=== PATIENT | female | born 1945 | race Caucasian/White ===

== ENCOUNTER 2018-07-25 21:09 | Emergency (ER) | payer MEDICARE, OTHER ==
[~2018-07-25] VITALS: Ht 157.5 cm; Wt 71.8 kg
[2018-07-25 21:20] VITALS: Ht 157.5 cm; Wt 71.8 kg
[2018-07-26] MEDS ORDERED: ACETAMINOPHEN 325 MG TAB PO ONE
[2018-07-26] MEDS ORDERED: traMADol 50 MG TAB PO ONE (00:30)
[2018-07-26] MEDS ORDERED: TRAM50TA2 PO (01:01)
--- NOTE | 2018-07-26 01:06 | ERD ---
ER Documentation Chief Complaint Chief Complaint S/P [facility]; LEFT WRIST DEFORMITY HPI 73-year-old female tripped over a curb today. She has pain in her bilateral wrist. She did block her fall with her upper extremities and denies any head injury, neck pain, loss of consciousness, vomiting, visual changes. Her primary complaints are her bilateral wrist pain. ROS All systems reviewed and are negative except as per history of present illness. Medications Home Meds Active Scripts Tramadol HCl (Tramadol HCl) 50 Mg Tablet, 50 MG PO Q4 PRN for PAIN, #15 TAB Prov:GEOVANI CHAMBERLAIN MD 07/26/18 Allergies Allergies: Coded Allergies: No Known Allergy (Unverified , 07/25/18) PMhx/Soc Medical and Surgical Hx: pt denies Medical Hx, pt denies Surgical Hx Hx Alcohol Use: No Hx Substance Use: No Hx Tobacco Use: No Smoking Status: Never smoker FmHx Family History: No diabetes, No coronary disease, No other Physical Exam Vitals Vital Signs Date Temp Pulse Resp B/P (MAP) Pulse Ox O2 O2 Flow FiO2 Time Delivery Rate 07/25/18 98.9 90 19 180/86 98 21:20 (117) Physical Exam Const: No acute distress Head: Atraumatic Eyes: Normal Conjunctiva ENT: Normal External Ears, Nose and Mouth. Neck: Full range of motion. No meningismus. Resp: Clear to auscultation bilaterally Cardio: Regular rate and rhythm, no murmurs Abd: Soft, non tender, non distended. Normal bowel sounds Skin: No petechiae or rashes Back: No midline or flank tenderness Ext: No cyanosis, or edema. Mild tenderness in the right ulnar aspect of the right wrist joint without deformities, restricted range of motion weakness. There is no erythema, warmth or bleeding. There is a deformity and tenderness of the left wrist without restricted range of motion, deficits, bleeding or lacerations. Neur: Awake and alert Psych: Normal Mood and Affect Results 24 hrs Current Medications Medications Dose Sig/Robles Start Time Status Last (Trade) Ordered Route PRN Stop Time Admin Dose Reason Admin 650 mg ONCE ONCE 07/26/18 DC 07/26/18 Acetaminophen PO 00:00 00:39 (Tylenol 07/26/18 00:01 Tab) Tramadol 50 mg ONCE ONCE 07/26/18 DC 07/26/18 HCl PO 00:30 00:39 (Ultram) 07/26/18 00:31 Procedures/MDM X-ray bilateral wrist 3V Interpreted by me: Scaphoid: Normal Bones: There is an impacted fracture of the left distal radius as well as a small ulnar styloid fracture. There is no fracture appreciated on the right wrist. Joints: No dislocation Foreign body: None. Impression-impacted left distal radius fracture and ulnar styloid fracture. Normal right wrist x-ray Patient is placed in a left short arm splint. Patient is neurovascular intact after the splint. She was given tramadol and Tylenol for pain. Patient was placed in a right wrist Velcro splint was neurovascular intact after splint. Patient's ring was removed from her left ring finger with a ring cutter. Patient tolerated procedure well. Patient presents with bilateral wrist pain and a fracture left distal radius without signs of ischemia, deficits, infection. She will be discharged home with orthopedic follow-up within the next week. She should return sooner for fevers, redness, new worsening symptoms per there is no signs of head injury, neck injury, deficits, additional complications due to her mechanical fall today. The patient was stable with no new complaints during the ER course. Clin ically, there is no current evidence to suggest meningitis, sepsis, acute abdomen, pneumonia, stroke, acute coronary syndrome, pulmonary embolism, aortic dissection or any other emergent condition appearing to require further evaluation or hospitalization. Patient counseled regarding my diagnostic impression and care plan. Prior to discharge all questions answered. Pt agrees with treatment plan and understands strict return precautions. Pt is instructed to follow up with primary care provider within 24-48 hours. Precautionary instructions provided including instructions to return to the ER if not improving or for any worsening or changing symptoms or concerns. Departure Diagnosis: Primary Impression: Wrist fracture Encounter type: initial encounter Fracture type: closed Laterality: left Qualified Codes: S62.102A - Fracture of unspecified carpal bone, left wr ist, initial encounter for closed fracture Additional Impression: Fall Encounter type: initial encounter Qualified Codes: W19.XXXA - Unspecified fall, initial encounter Condition: Stable Patient Instructions: Fall, Mechanical, Hypertension, Established, Fracture, Wrist [General] Referrals: [facility] Hours: Mon-Fri 9:00 AM - 5:00 PM Additional Instructions: See orthopedist within the next week for further evaluation of fracture. X-ray of right wrist normal. Recheck otherwise for new or worsening symptoms. GEOVANI CHAMBERLAIN MD Jul 26, 2018 01:06
[2018-07-26 01:27] VITALS: BP 145/86; PULSE 77; RESP 1
== END 2018-07-26 01:27 | disposition home or self-care (01) ==
LOC: FTE 21:09
DX: S52.612A Displaced fracture of left ulna styloid process, initial encounter for closed fracture (principal); S52.502A Unspecified fracture of the lower end of left radius, initial encounter for closed fracture; S69.91XA Unspecified injury of right wrist, hand and finger(s), initial encounter; W01.0XXA Fall on same level from slipping, tripping and stumbling without subsequent striking against object, initial encounter; Y92.9 Unspecified place or not applicable